=== PATIENT | female | born 2000 | race Caucasian/White ===

== ENCOUNTER 2022-05-05 18:21 | Emergency (ER) | payer BC ==
[~2022-05-05] VITALS: Ht 152.4 cm; Wt 54.4 kg
--- NOTE | 2022-05-05 19:00 | NUR ---
Received report from LC Patrick.
[2022-05-05 19:11] LABS: *BILIRUBIN,URIN NEGATIVE (NEGATIVE); *BLOOD, URINE NEGATIVE (NEGATIVE); *CLARITY,URINE CLEAR (CLEAR); *COLOR,URINE YELLOW (YELLOW); *KETONES,URINE NEGATIVE (NEGATIVE); *UROBILINOGEN,URINE 0.2 E.U./dl (NORMAL); LEUKOCYTE ESTERASE ,URINE TRACE (NEGATIVE); NITRITE, URINE NEGATIVE (NEGATIVE); UGLUCOSE NEGATIVE (NEGATIVE)
[2022-05-05 19:15] LABS: *URINE HCG, QUAL NEGATIVE (NEGATIVE); BACTERIA,URINE FEW /HPF (NONE SEEN); RBC,URINE 0-3 /HPF (0-3); SQUAMOUS EPITHELIAL CELL,UR FEW /HPF (NONE SEEN)
[2022-05-05 19:19] LABS: *AMPHETAMINE, URINE NEGATIVE (NEGATIVE); *CANNABINOID, URINE POSITIVE (NEGATIVE); *COCCAINE, URINE NEGATIVE (NEGATIVE); *OPIATE, URINE NEGATIVE (NEGATIVE); *PHENCYCLIDINE SCREEN,URINE NEGATIVE (NEGATIVE)
--- NOTE | 2022-05-05 19:23 | NUR ---
Spoke to nursing Qa Lead Shakir for a 1:1 sitter to be provided for patient but states no sitter at this time.
[2022-05-05 20:05] LABS: HEMATOCRIT 42.4 % (31.2-41.9); MEAN CORPUSCULAR HEMOGLOBIN 27.1 uug (24.7-32.8); PLATELET COUNT (AUTO) 310 K/uL (179-408)
[2022-05-05 20:12] LABS: CARBON DIOXIDE 29 mmol/L (21-32); CHLORIDE 102 mmol/L (98-107); CREATININE 0.8 mg/dL (0.6-1.3); GLUCOSE 91 mg/dL (74-106); POTASSIUM 3.4 mmol/L (3.5-5.1); UREA NITROGEN, BLOOD 9 mg/dL (7-18)
[2022-05-05 20:25] LABS: ALANINE AMINOTRANSFERASE 17 U/L (14-59); ALKALINE PHOSPHATASE 75 U/L (50-136); ASPARTATE AMINOTRANSFERASE 13 U/L (15-37); BILIRUBIN,DIRECT 0.2 mg/dL (0.0-0.2); BILIRUBIN,TOTAL 1.1 mg/dL (0.2-1.0); CREATINE KINASE, TOTAL 111 U/L (26-192); TOTAL PROTEIN, SERUM 8.7 g/dL (6.4-8.2)
[2022-05-05 20:28] LABS: ACETAMINOPHEN < 2.0 ug/mL (10-30)
[2022-05-05 20:43] LABS: ETHANOL < 3 MG/DL (0-0)
--- NOTE | 2022-05-05 20:48 | NUR ---
[facility] contact Minerva from Crisis Team, she will be shortly.
--- NOTE | 2022-05-05 22:00 | NUR ---
Minerva at bedside.
[2022-05-05] MEDS ORDERED: ALPRAZOLAM 0.5 MG TABLET ONE (22:52)
[2022-05-05] MEDS ORDERED: ALPRAZOLAM 0.25 MG TABLET PO ONE (23:00)
--- NOTE | 2022-05-05 23:48 | NUR ---
Patient discharged to home in stable condition. A/O x 4. NAD noted. Ambulatroy with a steady gait. Written and verbal after care instructions given. Patient verbalizes understanding of instructions. Stressed follow up or return to ER for worsening s/s.
[2022-05-05 23:53] VITALS: BP 128/90
== END 2022-05-05 23:50 | disposition home or self-care (01) ==
LOC: ER 18:37
DX: F41.9 Anxiety disorder, unspecified (principal); Z20.822 Contact with and (suspected) exposure to COVID-19; Z88.0 Allergy status to penicillin; F31.9 Bipolar disorder, unspecified; I49.1 Atrial premature depolarization
CPT/HCPCS: 36415; 84703; 85025; 93005; A4663; G0480